=== PATIENT | male | born 1980 | race Caucasian/White ===

== ENCOUNTER 2020-06-28 22:47 | Emergency (ER) | payer BC ==
[2020-06-28] MEDS ORDERED: Lidocaine 1% 30 ML SDV INJECT ONE (23:11)
[2020-06-28] MEDS ORDERED: Bacitracin Oint 1 GM U/D Packet TOP ONE (23:11)
[2020-06-28] MEDS ORDERED: Diphtheria,Pertussis(Acell),Tetanus Vaccine 0.5 ML Syringe IM ONE (23:12)
--- NOTE | 2020-06-28 23:13 | EDM.PDOC ---
ED HPI GENERAL MEDICAL PROBLEM - General Chief Complaint: Laceration Stated Complaint: laceration Time Seen by Provider: 06/28/20 23:05 Source of Information: Reports: Patient, RN, RN Notes Reviewed History Limitations: Reports: No Limitations - History of Present Illness INITIAL COMMENTS - FREE TEXT/NARRATIVE: Patient is a 39-year-old male who presents to ER with complaint of laceration to the left inner wrist. 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 Patient states he does not think he is up-to-date on his tetanus vaccination. Onset: Today, Sudden Left Wrist Pain Score (Numeric/FACES): 1 - Related Data Allergies Allergy/AdvReac Type Severity Reaction Status Date / Time Sulfa (Sulfonamide Allergy Other Verified 06/28/20 23:07 Antibiotics) Home Meds: Home Meds Multivitamin 1 tab PO DAILY 06/28/20 [History] ED ROS GENERAL - Review of Systems Review Of Systems: Comprehensive ROS is negative, except as noted in HPI. ED EXAM, SKIN/RASH Exam: See Below Exam Limited By: No Limitations General Appearance: Alert, WD/WN, No Apparent Distress Eye Exam: Bilateral Eye: EOMI, Normal Inspection Ears: Normal External Exam, Hearing Grossly Normal Nose: Normal Inspection Throat/Mouth: Normal Inspection, Normal Voice, No Airway Compromise Head: Atraumatic, Normocephalic Neck: Normal Inspection Respiratory/Chest: No Respiratory Distress, Lungs Clear, Normal Breath Sounds, No Accessory Muscle Use, Chest Non-Tender Cardiovascular: Normal Peripheral Pulses, Regular Rate, Rhythm, No Edema, No Gallop, No JVD, No Murmur, No Rub Peripheral Pulses: 2+: Radial (L), Radial (R) (Male) Exam: Deferred Rectal (Males) Exam: Deferred Extremities: Normal Inspection, Normal Range of Motion, Non-Tender, No Pedal Edema, Normal Capillary Refill Neurological: Alert, Oriented Psychiatric: Normal Affect, Normal Mood Skin: Warm, Dry, Normal Color, No Rash, Other (3.8cm laceration to the left inner wrist) Location, Skin: Upper Extremity, Left ED SKIN PROCEDURES - Laceration/Wound Repair Left Ventral Wrist Appearance: Subcutaneous Distal NVT: Neuro & Vascular Intact Anesthetic Type: Local Local Anesthesia - Lidocaine (Xylocaine): 1% Plain Local Anesthetic Volume: 5cc Skin Prep: Chlorhexidine (Hibiciens) Exploration/Debridement/Repair: Wound Explored, In a Bloodless Field, Explored to Base, No Foreign Material Found Closed with: Sutures Lac/Wound length In cm: 3.8 Suture Size: 4-0 # of Sutures: 4 Suture Type: Nylon, Interrupted Drain Placement: No Sterile Dressing Applied: Provider Tetanus Status Addressed: Yes Complications: No Course - Vital Signs Last Recorded V/S: Last Vital Signs Temp 98.5 F 06/28/20 22:55 Pulse 105 H 06/28/20 22:55 Resp 18 06/28/20 22:55 BP 186/128 H 06/28/20 22:55 Pulse Ox 96 06/28/20 22:55 - Orders/Labs/Meds Orders: Active Orders 24 hr Category Date Time Status Vaccines to be Administered [RC] PER UNIT ROUTINE Care 06/28/20 23:12 Active Meds: Medications Discontinued Medications Generic Name Dose Route Start Last Admin Trade Name Freq PRN Reason Stop Dose Admin Bacitracin 1 dose 06/28/20 23:11 Bacitracin Oint 1 Gm U/D Packet TOP 06/28/20 23:12 ONETIME ONE Diphtheria/Tetanus/Acell Pertussis 0.5 ml 06/28/20 23:12 06/28/20 23:32 Diphtheria,Pertussis(Acell),Tetanus Vaccine 0.5 Ml Syringe IM 06/28/20 23:13 0.5 ml .ONCE ONE Administration Lidocaine HCl 30 ml 06/28/20 23:11 06/28/20 23:31 Lidocaine 1% 30 Ml Sdv INJECT 06/28/20 23:12 4.5 ml ONETIME ONE Administration Departure - Departure Time of Disposition: 23:31 Disposition: Home, Self-Care 01 Condition: Good Clinical Impression: Laceration - Discharge Information *PRESCRIPTION DRUG MONITORING PROGRAM REVIEWED*: No *COPY OF PRESCRIPTION DRUG MONITORING REPORT IN PATIENT TRACY: No Instructions: Laceration Care, Adult, [id number], Sutures, Shanique, or Adhesive Wound Closure, [id number] Referrals: Tony Alvarez MD [Primary Care Provider] - Forms: ED Department Discharge Additional Instructions: Keep area clean and dry Monitor for signs of infection i.e. redness, warmth, drainage Follow up with your primary care facility in 7-10 days for suture removal Sepsis Event Note (ED) - Focused Exam Vital Signs: Vital Signs Temp Pulse Resp BP Pulse Ox 06/28/20 22:55 98.5 F 105 H 18 186/128 H 96 - My Orders Last 24 Hours: My Active Orders 06/28/20 23:12 Vaccines to be Administered [RC] PER UNIT ROUTINE - Assessment/Plan Last 24 Hours: My Active Orders 06/28/20 23:12 Vaccines to be Administered [RC] PER UNIT ROUTINE
== END 2020-06-28 23:38 | disposition home or self-care (01) ==
LOC: VM.ED 22:47
DX: S61.512A Laceration without foreign body of left wrist, initial encounter (principal); Z88.2 Allergy status to sulfonamides; Z23 Encounter for immunization; W26.0XXA Contact with knife, initial encounter
CPT/HCPCS: 12002; 90471; 90715; 99282-25; 99283